=== PATIENT | male | born 2005 | race Caucasian/White ===

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

== ENCOUNTER 2025-02-07 16:58 | Emergency (ER) | payer OTHER ==
[~2025-02-07] VITALS: Ht 185.4 cm; Wt 80.6 kg
[~2025-02-07 16:58] MED LIST: AUG875T PO; IBUP-1456 PO
--- NOTE | 2025-02-07 17:30 | ED.PDOC ---
History of Present Illness HPI Comments This is a 19 year old male presenting to the ED with chief complaint of left hand/finger tingling and palpitations. Patient reports that has been experiencing left 4th and 5th left finger tingling and numbness that radiates up his forearm since 12pm this afternoon along with associated palpitations, shakiness, and panicking about 30 minutes prior to arrival in the ED. Patient relays that he has had a similar episode a week ago, but did not go to see a doctor. Patient states that he feels a bit better now, but his tingling and numbness is still present. Patient denies any history of anxiety, dizziness, headache, chest pain, SOB, or N/V. Chief Complaint: Upper Extremity Time Seen by MD: 17:27 Reviewed Notes: Nurses Notes, Medications, Allergies Allergies: Coded Allergies: Blue Dye #1 (Miller Blue) (Verified Allergy, Intermediate, per pt makes his lips swell but only advil liquid gels, 12/29/23) other NSAIDS ok Diphenhydramine (Verified Allergy, Intermediate, per pt makes his lips swell but only advil liquid gels, 12/29/23) other NSAIDS ok Home Meds Active Scripts Hydroxyzine HCl (Hydroxyzine Hydrochloride) 50 Mg Tab, 50 MG PO TID PRN, #30 TAB prn anxiety Prov:CIARRA PRETTY MD 02/07/25 Ibuprofen (Ibuprofen) 800 Mg Tab, 1 TAB PO TID for 7 Days, #21 TAB 1 Refill Prov:JOEY FISHER 12/29/23 Amoxicillin & Pot Clavulanate (AUGMENTIN TABLET) 875 Mg Tb, 875 MG PO BID for 7 Days, #14 TAB Prov:JOEY FISHER 12/29/23 Information Source: Patient, Relative (Mother) Mode of Arrival: Ambulatory Severity: Mild Timing: Hours Duration: Since onset Prehospital treatment: None Past Medical History PAST MEDICAL HISTORY: Denies Surgical History: Denies all surgeries Family History Family History: Reviewed,noncontributory to illness, No family hx of Cancer, No family hx of DM, No family hx of Heart roberto, No family hx of HTN, No family hx ofKidney roberto, No family hx of Liver roberto, No family hx of Lung roberto, No family hx of Stroke Social History Smoker: Non-Smoker Alcohol: Denies ETOH Use Drugs: Denies Drug Use Lives In: Home Constitutional: denies: chills, diaphoresis, fatigue, fever, malaise, sweats, weakness, others EENTM: denies: blurred vision, double vision, ear bleeding, ear discharge, ear drainage, ear pain, ear ringing, eye pain, eye redness, hearing loss, mouth pain, mouth swelling, nasal discharge, nose bleeding, nose congestion, nose pain, photophobia, tearing, throat pain, throat swelling, voice changes, others Respiratory: denies: cough, hemoptysis, orthopnea, SOB at rest, shortness of breath, SOB with excertion, stridor, wheezing, others Cardiovascular: reports: palpitations; denies: chest pain, dizzy spells, diaphoresis, Dyspnea on exertion, edema, irregular heart beat, left arm pain, lightheadedness, PND, syncope, others Gastrointestinal: denies: abdomen distended, abdominal pain, blood streaked bowels, constipated, diarrhea, dysphagia, difficulty swallowing, hematemesis, melena, nausea, poor appetite, poor fluid intake, rectal bleeding, rectal pain, vomiting, others Genitourinary: denies: burning, dysuria, flank pain, frequency, hematuria, incontinence, penile discharge, penile sore, pain, testicle pain, testicle swelling, urgency, others Neurological: reports: others (Tingling and pain to 4th and 5th fingers down to left forearm); denies: dizziness, fainting, headache, left sided numbness, left sided weakness, numbness, paresthesia, pre-existing deficit, right sided numbness, right sided weakness, seizure, speech problems, tingling, tremors, weakness Musculoskeletal: denies: back pain, gout, joint pain, joint swelling, muscle pain, muscle stiffness, neck pain, others Integumetry: denies: bruises, change in color, change in hair/nails, dryness, laceration, lesions, lumps, rash, wounds, others Allergic/Immunocompromised: denies: Difficulty Healing, Frequent Infections, Hives, Itching, others Hematologic/Lymphatic: denies: anemia, blood clots, easy bleeding, easy bruising, swollen glands, others Endocrine: denies: excessive hunger, excessive sweating, excessive thirst, excessive urination, flushing, intolerance to cold, intolerance to heat, unexplained weight gain, unexplained weight loss, others Psychiatric: denies: anxiety, bipolar disorder, depression, hopeless, panic disorder, schizophrenia, sleepless, suicidal, others All Other Systems: Reviewed and Negative Physical Exam General Appearance: No Apparent Distress, Normal HEENT: Other (Pupils and face symmetric. Moist mucous membranes.) Neck: Full Range of Motion, Non-Tender, Normal Inspection Respiratory: Lungs Clear, No Accessory Muscle Use, No Respiratory Distress, Normal Breath Sounds Cardiovascular: No Edema, No JVD, Regular Rate/Rhythm Breast Exam: Deferred Gastrointestinal: Non Tender, Soft Genitalia: Deferred Pelvic: Deferred Rectal: Deferred Extremities: Normal inspection, Normal range of motion, Non-tender, No pedal edema Musculoskeletal : Apperance: Normal Neurologic: Alert (Oriented x4), No Motor Deficits, Normal Affect, No Sensory Deficits, Other (Anxious) Cerebellar Function: Normal Reflexes: NOT DONE Skin: Dry, Normal Color, Warm Lymphatic: NOT DONE Was a procedure done? Was a procedure done?: No EKG EKG : Comments Sinus rhythm with sinus arrhythmia, rate 81, normal intervals, normal axis, normal QRS, inferior T-wave inversion with other nonspecific T change Differential Dx Considerations may include: Anxiety, arrhythmia, electrolyte imbalance, dehydration, cervical radiculopathy, among others X-Ray, Labs, Meds, VS Vital Signs Date Time Temp Pulse Resp B/P (MAP) Pulse Ox O2 Delivery O2 Flow Rate FiO2 02/07/25 17:00 98.3 95 16 149/84 100 98.3 Lab Test 02/07/25 18:39 02/07/25 17:39 02/07/25 17:26 Range/Units Troponin I High Sensitivity < 3 L < 3 L </=54 ng/L White Blood Count 10.3 4.4-10.8 10^3/uL Red Blood Count 5.38 4.5-5.90 10^6/uL Hemoglobin 16.1 13.5-17.5 g/dL Hematocrit 46.7 41.0-53.0 % Mean Corpuscular Volume 86.8 80.0-100.0 fL Mean Corpuscular Hemoglobin 29.9 28.0-32.0 pg Mean Corpuscular Hemoglobin Concent 34.5 32.0-36.0 g/dL Red Cell Distribution Width 12.9 11.8-14.3 % Platelet Count 226 140-450 10^3/uL Mean Platelet Volume 8.2 6.9-10.8 fL Neutrophils (%) (Auto) 64.6 37.0-80.0 % Lymphocytes (%) (Auto) 28.2 10.0-50.0 % Monocytes (%) (Auto) 6.1 0.0-12.0 % Eosinophils (%) (Auto) 0.7 0.0-7.0 % Basophils (%) (Auto) 0.4 0.0-2.0 % Neutrophils # (Auto) 6.6 1.6-8.6 10 ^3/uL Lymphocytes # (Auto) 2.9 0.4-5.4 10 ^3/uL Monocytes # (Auto) 0.6 0-1.3 10 ^3/uL Eosinophils # (Auto) 0.1 0-0.8 10 ^3/uL Basophils # (Auto) 0 0-0.2 10 ^3/uL Nucleated Red Blood Cells 0.0 % D-Dimer, Quantitative 0.28 0.0-0.49 mg/L FEU Sodium Level 141 136-145 mmol/L Potassium Level 3.5 3.5-5.1 mmol/L Chloride Level 104 98-107 mmol/L Carbon Dioxide Level 26 20-31 mmol/L Anion Gap 11 5-15 Blood Urea Nitrogen 8 L 9-23 mg/dL Creatinine 1.08 0.700-1.30 mg/dL Glomerular Filtration Rate Calc 101 >90 mL/min BUN/Creatinine Ratio 7.4 L 10.0-20.0 Serum Glucose 151 H 74-106 mg/dL Calcium Level 9.8 8.7-10.4 mg/dL B-Type Natriuretic Peptide 6.98 0-100 pg/mL Urine Color Yellow Yellow Urine Clarity Clear Clear Urine pH 5.5 5.0-9.0 Urine Specific [place] 1.015 1.001-1.035 Urine Protein Trace H Negative Urine Ketones Negative Negative Urine Blood Negative Negative /uL Urine Nitrite Negative Negative Urine Bilirubin Negative Negative Urine Urobilinogen Normal Negative mg/dL Urine Leukocyte Esterase Negative Negative /uL Urine Glucose Normal Normal mg/dL Urine Opiates Screen Neg NEGATIVE Urine Fentanyl Screen Neg NEGATIVE Urine Barbiturates Screen Neg NEGATIVE Urine Phencyclidine Screen Neg NEGATIVE Urine Amphetamines Screen Neg NEGATIVE Urine Benzodiazepines Screen Neg NEGATIVE Urine Cocaine Screen Neg NEGATIVE Urine Cannabinoids Screen Neg NEGATIVE PROCEDURE(s): CXRP - CHEST PORTABLE REASON: palpitations ORDER NUMBER(s): [id number], ACCESSION NUMBER(s): [id number] INDICATION: palpitations TECHNIQUE: Frontal view of the chest. COMPARISON: None FINDINGS: . The heart and mediastinal contours are grossly unremarkable. There is no evidence of pleural disease. The lungs are clear. The bony structures of the chest are intact without fracture. IMPRESSION: 1. No evidence of acute disease. X-Ray, Labs, Meds, VS Comment 19-year-old male with no significant past medical history complaining of left hand and forearm numbness and tingling associated with palpitations and feeling anxious Vitals remarkable for BP 149/84 Exam remarkable for anxious appearance Rhythm strip independently interpreted by me: Sinus rhythm, rate 85, no ectopy. Chest x-ray unremarkable CBC, basic metabolic panel, BNP, troponin, D-dimer, UA and urine drug screen unremarkable for any abnormality of acute significance Patient treated with the following in the ED: Ativan 1 mg IV On re-evaluation, symptoms have improved and vitals were stable. Patient appears stable for discharge with close outpatient follow-up with his primary physician. Time of 1ST Reevaluation: 18:27 Reevaluation 1ST: Improved Patient Education/Counseling: Diagnosis, Treatment Family Education/Counseling: Diagnosis, Treatment SEPSIS Sepsis Screen Date sepsis recognized/suspect: Feb 07, 2025 Time Sepsis recognized/suspect: 1703 Recent Procedure: No On Antibiotic Therapy: No Respiratory Rate >20: No Heart Rate >90: Yes Temp<36 C (96.8 F) or >38.3 C: No SBP <90 or MAP <65 mmHG: No New Acute Mental Status Change: No Is the patient on CPAP, BIPAP,: No SEPSIS EXCLUSION NOTE: Sepsis Exclusion Note: Patient presents with SIRS criteria, but the SIRS response is attributed to [ anxiety], not a suspected infection. Sepsis bundle is not initiated at this time, due to this reason. Further management will focus on the treatment of the above condition (s). Physician Orders Chest Portable (02/07/25 17:26) Vital Signs Date Time Temp Pulse Resp B/P (MAP) Pulse Ox O2 Delivery O2 Flow Rate FiO2 02/07/25 17:00 98.3 95 16 149/84 100 98.3 Laboratory Tests Test 02/07/25 17:39 White Blood Count 10.3 10^3/uL (4.4-10.8) Departure 1 Departure Time of Disposition: 19:00 Impression: Primary Impression: Paresthesias Additional Impression: Anxiety Disposition: HOME / SELF CARE / HOMELESS Condition: Stable Additional Instructions: Your blood tests, including screening test for heart attack, heart failure and blood clots, were unremarkable. Your urine test was unremarkable. Your chest x-ray was normal. Your EKG was unremarkable. I have prescribed medication for anxiety, which may help with your symptoms. Follow-up with your primary doctor in 1-2 days. Return to ER for persistent or worsening symptoms. [place] [id number] Ph: [phone] DIAGNOSTIC IMAGING Diagnostic Imaging Report : [id number] Signed PATIENT: DANIEL DIAS ACCT: [id number] UNIT: [id number] : 2005 LOC: ER ROOM / BED: / AGE / SEX: 19 / M ADM STATUS: REG ER SERVICE 1726 ORDERING PHYSICIAN: CIARRA PRETTY MD PROCEDURE(s): CXRP - CHEST PORTABLE REASON: palpitations ORDER NUMBER(s): [id number], ACCESSION NUMBER(s): [id number] INDICATION: palpitations TECHNIQUE: Frontal view of the chest. COMPARISON: None FINDINGS: . The heart and mediastinal contours are grossly unremarkable. There is no evidence of pleural disease. The lungs are clear. The bony structures of the chest are intact without fracture. IMPRESSION: 1. No evidence of acute disease. e-Prescriptions Hydroxyzine HCl (Hydroxyzine Hydrochloride) 50 Mg Tab 50 MG PO TID PRN, #30 TAB prn anxiety Prov: CIARRA PRETTY MD 02/07/25 Discharged With: Relative (Mother) Critical Care Note Critical Care Time?: No Stability Stability form required: No Heart Score Heart Score: Heart Score Response (Comments) Value History Slightly Suspicious 0 EKG Repolarization Disturb 1 Age <45 0 Risk Factors No known risk factors 0 Troponin Normal limit 0 Total 1 I personally scribed for CIARRA PRETTY MD ([email or web address]) on 02/07/25 at 17:29. Electronically submitted by Jean Marie Stone ([email or web address]). CIARRA PRETTY MD Feb 07, 2025 17:29
[2025-02-07 17:56] LABS: Hematocrit 46.7 % (41.0-53.0); Hemoglobin 16.1 g/dL (13.5-17.5); Mean Corpuscular Hemoglobin 29.9 pg (28.0-32.0); Mean Corpuscular Volume 86.8 fL (80.0-100.0); Nucleated Red Blood Cells % 0.0 %
[2025-02-07] MEDS: LORazepam 0.5 MG TAB PO ONE (17:56)
[2025-02-07 18:03] LABS: Chloride 104 mmol/L (98-107); Potassium 3.5 mmol/L (3.5-5.1); Sodium 141 mmol/L (136-145)
[2025-02-07 18:04] LABS: Anion Gap 11 (5-15); Calcium 9.8 mg/dL (8.7-10.4); Carbon Dioxide 26 mmol/L (20-31)
[2025-02-07 18:09] LABS: BUN/Creatinine Ratio 7.4 (10.0-20.0)
--- NOTE | 2025-02-07 18:09 | DVH ---
INDICATION: palpitations TECHNIQUE: Frontal view of the chest. COMPARISON: None FINDINGS: . The heart and mediastinal contours are grossly unremarkable. There is no evidence of pleural disea se. The lungs are clear. The bony structures of the chest are intact without fracture. IMPRESSION: 1. No evidence of acute disease.
[2025-02-07 18:20] LABS: Blood Urea Nitrogen 8 mg/dL (9-23); Glucose 151 mg/dL (74-106)
[2025-02-07 18:34] LABS: Amphetamine Screen, Urine Neg (NEGATIVE); Barbiturate Scree,Urine Neg (NEGATIVE); Benzodiazephine Screen, Urine Neg (NEGATIVE); Cannabinoid Screen, Urine Neg (NEGATIVE); Cocaine Screen, Urine Neg (NEGATIVE); Opiate Scree,Urine Neg (NEGATIVE); Phencyclidine Screen, Urine Neg (NEGATIVE); Urine Protein, UAD TRACE (Negative)
[2025-02-07] MEDS ORDERED: HYDR50TA32 PO (19:01)
--- NOTE | 2025-02-07 19:11 | ECG ---
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
[2025-02-07 19:16] VITALS: BP 134/70; PULSE 74; RESP 17; TEMP 98.6; O2SAT 97
== END 2025-02-07 19:18 | disposition home or self-care (01) ==
LOC: ER 16:58
DX: R20.2 Paresthesia of skin (principal); F41.9 Anxiety disorder, unspecified; Z88.6 Allergy status to analgesic agent; Z79.1 Long term (current) use of non-steroidal anti-inflammatories (NSAID); Z79.899 Other long term (current) drug therapy
CPT/HCPCS: 36415; 71045; 80048; 80307; 81003; 83880; 84484; 85025; 85379; 93005